=== PATIENT | female | born 1945 | race Caucasian/White ===

== ENCOUNTER 2021-04-27 17:51 | Emergency (ER) | payer MEDICARE, SELFPAY ==
--- NOTE | ~2021-04-27 | CT_ITS ---
EXAMINATION: CT brain wo con EXAM DATE: 04/27/2021 19:43 INDICATION: Fall, temporary change in awareness. TECHNIQUE: Spiral CT of the head was performed without contrast. Axial, coronal and sagittal images were reviewed. The dose-length product (DLP) for this examination was 605.33 mGy-cm. The exposure w as tailored according to patient size, and iterative reconstruction (ASIR) was used as additional dos e reduction technique. There is no prior study for comparison. FINDINGS: There is no acute intraparenchymal hemorrhage. No evidence of intraparenchymal brain mass lesion. No evidence of acute infarction. Please note that initial head CT has limited sensitivity f or small or acute infarctions. There is mild to moderate periventricular and subcortical hypodensity , nonspecific but probably related to small vessel ischemic disease. [id number] There is int racranial carotid arteriosclerosis. There are no extra-axial collections. There is no mass effect o r midline shift. The orbits are unremarkable. Soft tissue is unremarkable. The visualized sinuses and mastoid air cells are well aerated. Nasal bone fractures which appear most likely old given abs ence of soft tissue findings. IMPRESSION: 1. No acute intracranial findings. 2. Chronic age related findings. Reviewed, dictated and finalized at location G. US SUPERVISOR
[2021-04-27 17:54] VITALS: BP 96/66; PULSE 78; RESP 18; TEMP 36.8; O2SAT 96
--- NOTE | 2021-04-27 18:36 | PC.NURSE ---
Folder And Notcher attempting to collect more information about patient's visit. Patient sat up and yelled, Get the hell out of my life! Then laid back down in the bed. Patient on pulse ox, blood pressure, and cardiac monitors.
--- NOTE | 2021-04-27 18:54 | PC.NURSE ---
Lock Plater heard a loud noise from patient's direction and saw patient on the floor. Patient assisted back into the bed by sewing techniques demonstrator and va underwriter. Patient sustained a bloody nose when fell due to hitting her face on either the floor or bed when she fell. Patient just keeps yelling, I'm dying, I'm dying. Lock Plater notified [facility] ED charge regarding the incident and decision was made have an sewing techniques demonstrator sit with patient for safety. Lock Plater will notify provide once a provider is signed up.
[2021-04-27] MEDS: THIAMINE HCL 200 MG/2 ML VIAL IV PUSH (19:26)
[2021-04-27 20:01] LABS: Basophils Percent Auto 0.4 % (0.2-1.2); Eosinophils Absolute Auto 0.1 K/mm3 (0-0.3); Eosinophils Percent Auto 1.3 % (0-4.4); Hematocrit 40.7 % (37.0-47.0); Hemoglobin 13.3 g/dL (12.0-15.0); Immature Granulocyte Absolute 0.02 K/mm3 (0.00-0.031); Immature Granulocyte Percent A 0.3 % (0-0.5); Lymphocytes Absolute Auto 3.46 K/mm3 (0.9-3.2); Lymphocytes Percent Auto 49.4 % (18.3-44.2); Mean Corpuscular HGB Conc 32.7 g/dl (32-36); Mean Corpuscular Hemoglobin 33.9 pg (26-34); Mean Corpuscular Volume 103.8 fl (80-100); Mean Platelet Volume 10.3 fl (7.4-10.4); Monocytes Absolute Auto 0.7 K/mm3 (0.1-0.6); Monocytes Percent Auto 10.3 % (2.6-8.5); Neutrophils Absolute Auto 2.7 K/mm3 (1.3-6.7); Neutrophils Percent Auto 38.3 % (45.5-73.1); Platelet Count Result 280 k/mm3 (150-375); Red Blood Count 3.92 M/mm3 (4.2-5.4); Red Cell Distribution Width 15.5 % (11.5-14.5)
[2021-04-27 20:26] LABS: Ethanol 380 mg/dL (<10)
[2021-04-27 20:28] LABS: Lipase 111 U/L (23-300)
[2021-04-27 20:41] LABS: Troponin I < 0.012 ng/mL (0.000-0.034)
--- NOTE | 2021-04-27 21:05 | PC.NURSE ---
Patient fell asleep with tech sitting at bedside. Spoke with jalen Powell RN and decision made to utilize bed alarm and remove sitter with curtain open to keep an eye on patient.
[2021-04-27 21:24] LABS: Add Urine Microscopic? NO; Appearance Urine Clear (Clear); Bilirubin Urine Negative (Negative); Blood Urine Negative (Negative); Color Urine Straw (Yellow); Glucose Urine UA Negative (Negative); Ketones Urine Negative (Negative); Leukocyte Esterase Ur Negative LEU/UL (Negative); Nitrate Urine Negative (Negative); Protein Urine Negative (Negative); Urobilinogen Urine Negative mg/dL (<2.0)
[2021-04-27 21:28] LABS: Specific Grav Ur 1.004 (1.001-1.035)
--- NOTE | 2021-04-27 21:29 | PC.NURSE ---
Patient request to urinate. Window Treatment Installer assisted patient onto bedpan and patient urinate. Window Treatment Installer cleaned patient up and placed patient in a diaper.
[2021-04-27 21:37] LABS: Amphetamine Screen Urine Negative (Negative); Barbiturate Screen Urine Negative (Negative); Benzodiazepines Screen Urine Negative (Negative); Cannabinoid Screen Urine Negative (Negative); Cocaine Screen Urine Negative (Negative); Methadone Screen Urine Negative (Negative); Opiate Screen Urine Negative (Negative); Phencyclidine Screen Urine Negative (Negative)
[2021-04-27 21:40] LABS: Alanine Aminotransferase 22 U/L (4-35); Albumin Level 3.9 g/dL (3.5-5.1); Alkaline Phosphatase 89 U/L (38-126); Anion Gap 9 mmol/L (8-16); Aspartate Amino Transferase 32 U/L (14-36); Bilirubin,Total 0.4 mg/dL (0.2-1.3); Blood Urea Nitrogen 16 mg/dL (7-17); Calcium 9.2 mg/dL (8.4-10.2); Carbon Dioxide 24 mmol/L (22-30); Chloride 113 mmol/L (98-107); Estimated CRCL calculation 59 ml/min; Estimated Glomerular Filt Rate > 60; Glucose 111 mg/dL (65-110); Potassium 3.2 mmol/L (3.4-5.0); Sodium 146 mmol/L (137-145)
[2021-04-27] MEDS: LACTATED RINGERS 1,000 ML 999 ML IV CONT (21:54)
--- NOTE | 2021-04-27 22:01 | PC.NURSE ---
Patient continues to be resting/sleeping on stretcher. Bed alarm under patient for patient safety.
--- NOTE | 2021-04-27 22:49 | ED.GENADULT ---
HPI - General Adult General Chief complaint: Abdominal Pain <Sabas Jolly MD - Last Filed: 04/27/21 22:55> Stated complaint: Abdominal Pain <Sabas Jolly MD - Last Filed: 04/27/21 22:55> Time Seen by Provider: 04/27/21 18:59 <Sabas Jolly MD - Last Filed: 04/27/21 22:55> Source: patient <Sabas Jolly MD - Last Filed: 04/27/21 22:55> Mode of arrival: EMS <Sabas Jolly MD - Last Filed: 04/27/21 22:55> Limitations: altered mental status and clinical condition <Sabas Jolly MD - Last Filed: 04/27/21 22:55> History of Present Illness HPI narrative: 75-year-old female Brought by EMS Unclear exactly what for, possibly abdominal pain, however neither the patient nor the EMS report are crystal clear on this Patient is extremely intoxicated and her only complaint to me is I think I might be dying I cannot get any other specific symptoms or reason for that believe, she does not seem to have shortness of breath or chest pain, she has not vomiting, she is moving everything, she does not have any wounds <Sabas Jolly MD - Last Filed: 04/27/21 22:55> Related Data Allergies/adverse reactions: Allergies Allergy/AdvReac Type Severity Reaction Status Date / Time Unable to Assess Allergy Verified 04/27/21 21:53 <Sabas Jolly MD - Last Filed: 04/27/21 22:55> Review of Systems Review of Systems: ROS unobtainable: Yes unobtainable due to mental status <Sabas Jolly MD - Last Filed: 04/27/21 22:55> Constitutional: Constitutional: Denies fever(s) <Sabas Jolly MD - Last Filed: 04/27/21 22:55> Cardiovascular: Cardiovascular: Denies chest pain <Sabas Jolly MD - Last Filed: 04/27/21 22:55> Gastrointestinal: Gastrointestinal: Denies vomiting <Sabas Jolly MD - Last Filed: 04/27/21 22:55> FORMERLY [facility], [facility] Social History Social History: Social History (Updated 04/27/21 @ 22:52 by Sabas Jolly MD) Alcohol intake: current Alcohol use details: Heavy <Sabas Jolly MD - Last Filed: 04/27/21 22:55> Exam Const: General: cooperative <Sabas Jolly MD - Last Filed: 04/27/21 22:55> Limitations: altered mental status <Sabas Jolly MD - Last Filed: 04/27/21 22:55> Other: Appears frail and chronically ill <Sabas Jolly MD - Last Filed: 04/27/21 22:55> HENMT: Head: normal to inspection, normocephalic, atraumatic, no contusions and no hematomas <Sabas Jolly MD - Last Filed: 04/27/21 22:55> Ears: external ears normal <Sabas Jolly MD - Last Filed: 04/27/21 22:55> General nose exam: no epistaxis <Sabas Jolly MD - Last Filed: 04/27/21 22:55> Mouth: Yes moist mucous membranes <Sabas Jolly MD - Last Filed: 04/27/21 22:55> Eyes: Conjunctivae: conjunctivae normal <Sabas Jolly MD - Last Filed: 04/27/21 22:55> EOM: EOMs intact bilaterally <Sabas Jolly MD - Last Filed: 04/27/21 22:55> Neck: Neck: normal visual inspection, supple and no JVD <Sabas Jolly MD - Last Filed: 04/27/21 22:55> Resp: Effort & Inspection: normal respiratory effort and not labored <Sabas Jolly MD - Last Filed: 04/27/21 22:55> Auscultation: clear to auscultation bilaterally and other (BS =) <Sabas Jolly MD - Last Filed: 04/27/21 22:55> Cardio: Rate: regular rate <Sabas Jolly MD - Last Filed: 04/27/21 22:55> Rhythm: regular rhythm <Sabas Jolly MD - Last Filed: 04/27/21 22:55> GI: Inspection: non-distended <Sabas Jolly MD - Last Filed: 04/27/21 22:55> GI Palp: Yes Soft to palpation, No Guarding due to palpation present (GI) and No Rebound tenderness present <Sabas Jolly MD - Last Filed: 04/27/21 22:55> Skin: General skin exam: normal color and no rashes or lesions noted <Sabas Jolly MD - Last Filed: 04/27/21 22:55> Neuro: General: moves all extremities <Sabas Jolly MD - Last Filed: 04/27/21 22:55> Other: No facial asymmetry <Sabas Jolly MD - Last Filed: 04/27/21 22:55> Extrem: General: normal to inspection and no pe
[2021-04-27 23:25] VITALS: BP 98/60; PULSE 77; RESP 25; O2SAT 100
[2021-04-27 23:31] LABS: Glucose Point of Care 104 mg/dl (65-105)
[2021-04-27] MEDS: DEXTROSE 5%/0.45% SOD CHL 1,000 ML 100 ML IV CONT (23:45)
[2021-04-28 01:50] VITALS: BP 103/59; PULSE 76; RESP 20; O2SAT 96
[2021-04-28 03:08] VITALS: BP 112/50; PULSE 76; RESP 20; O2SAT 99
[2021-04-28 06:20] VITALS: BP 110/55; PULSE 80; RESP 20; O2SAT 100
== END 2021-04-28 06:22 | disposition home or self-care (01) ==
PROVIDERS: Emergency Medicine; Emergency Provider Emergency Medicine
DX: F10.929 Alcohol use, unspecified with intoxication, unspecified (principal)
CPT/HCPCS: 36415; 70450; 80053; 80307; 81003; 82948; 83690; 84484; 85025; 96361; 96374; 99284; J3411; J7120

== ENCOUNTER 2021-04-29 18:42 | Emergency (ER) | payer MEDICARE, SELFPAY ==
[2021-04-29 18:41] VITALS: BP 110/61; PULSE 76; RESP 20; TEMP 35.8; O2SAT 98
--- NOTE | 2021-04-29 18:53 | ED.GENADULT ---
HPI - General Adult General Chief complaint: Abdominal Pain Stated complaint: etoh with abd pain Time Seen by Provider: 04/29/21 18:43 Source: patient, EMS and RN notes reviewed Limitations: intoxication History of Present Illness HPI narrative: 75-year-old female presents the [facility] department for evaluation of alcohol intoxication and having bad emotions . Patient states that she was drinking today and she had thoughts of her daughter that has . Patient denies any homicidal or suicidal ideation. Patient states she does have some epigastric pain. Patient was evaluated in the ED 2 days for alcohol intoxication. Related Data Allergies Allergy/AdvReac Type Severity Reaction Status Date / Time Unable to Assess Allergy Verified 04/27/21 21:53 Review of Systems Review of Systems: CONSTITUTIONAL: Denies fever, chills, or sweats. EYES: Denies visual changes, redness, or discharge. ENT: Denies rhinorrhea, congestion, sore throat, or otalgia. CARDIOVASCULAR: Denies chest pain, palpitations, or edema. RESPIRATORY: Denies cough or dyspnea. GASTROINTESTINAL: chronic abdominal pain GENITOURINARY: Denies dysuria or hematuria. SKIN: Denies rash or itching. MUSCULOSKELETAL: Denies back pain, joint pain, or myalgia. NEUROLOGIC: Denies headache, numbness, or weakness. PSYCHIATRIC: alcohol intoxication PMFSH Social History Social History (Updated 04/27/21 @ 22:52 by Sabas Jolly MD) Alcohol intake: current Alcohol use details: Heavy Exam Narrative: APPEARANCE: Well appearing, no pain, no distress, well-nourished. HEAD: normocephalic, atraumatic. EYES: PERRLA/EOMI, conjunctivae clear. contusion around right eye NOSE: Normal no drainage NECK: Supple. No adenopathy, no masses. RESPIRATORY: Airway patent, respirations nonlabored. Clear to auscultation bilaterally, no rales, rhonchi, wheezing. CARDIOVASCULAR: Regular rate and rhythm without murmurs rubs or gallops. ABDOMINAL: Soft, nontender, nondistended, normal bowel sounds MUSCULOSKELETAL: Moves all extremities. Strength/ROM intact, No edema, No calf tenderness. NEURO: Alert. Cranial nerves II through XII intact. SKIN: Warm, dry. Normal Color PSYCHIATRIC: Normal affect/mood. Course Reevaluation(s) Reevaluation #1: Patient denies any current abdominal pain. Patient states she does feel improved. Patient is requesting discharge to home. Vital Signs Vital signs: Vital Signs Temperature 96.4 F L 04/29/21 18:41 Pulse Rate 76 04/29/21 18:41 Respiratory Rate 20 04/29/21 18:41 Blood Pressure 110/61 04/29/21 18:41 Pulse Oximetry 98 04/29/21 18:41 Temperature 96.4 F L 04/29/21 18:41 Pulse Rate 68 04/29/21 20:44 Respiratory Rate 20 04/29/21 20:44 Blood Pressure 97/54 L 04/29/21 20:44 Pulse Oximetry 99 04/29/21 20:44 Medical Decision Making Vital Signs Vital Signs: Vital Signs Temperature 96.4 F L 04/29/21 18:41 Pulse Rate 76 04/29/21 18:41 Respiratory Rate 20 04/29/21 18:41 Blood Pressure 110/61 04/29/21 18:41 Pulse Oximetry 98 04/29/21 18:41 Temperature 96.4 F L 04/29/21 18:41 Pulse Rate 68 04/29/21 20:44 Respiratory Rate 20 04/29/21 20:44 Blood Pressure 97/54 L 04/29/21 20:44 Pulse Oximetry 99 04/29/21 20:44 Lab Data Lab results reviewed: Yes I reviewed the patient's lab results. Result diagrams: 04/29/21 18:50 04/29/21 18:50 Labs: Lab Results 04/29/21 04/29/21 04/29/21 Range/Units 18:50 18:50 18:50 WBC 9.6 (4.5-10.0) K/mm3 RBC 4.18 L (4.2-5.4) M/mm3 Hgb 13.8 (12.0-15.0) g/dL Hct 42.6 (37.0-47.0) % MCV 101.9 H (80-100) fl MCH 33.0 (26-34) pg MCHC 32.4 (32-36) g/dl RDW 15.1 H (11.5-14.5) % Plt Count 271 (150-375) k/mm3 MPV 9.9 (7.4-10.4) fl Immature Gran % (Auto) 0.4 (0-0.5) % Neut % (Auto) 55.9 (45.5-73.1) % Lymph % (Auto) 32.9 (18.3-44.2) % [place] % (Auto) 9.5 H (2.6-8.5) % Eos % (Aut
[2021-04-29 18:58] LABS: Basophils Percent Auto 0.4 % (0.2-1.2); Eosinophils Absolute Auto 0.1 K/mm3 (0-0.3); Eosinophils Percent Auto 0.9 % (0-4.4); Hematocrit 42.6 % (37.0-47.0); Hemoglobin 13.8 g/dL (12.0-15.0); Immature Granulocyte Absolute 0.04 K/mm3 (0.00-0.031); Immature Granulocyte Percent A 0.4 % (0-0.5); Lymphocytes Absolute Auto 3.16 K/mm3 (0.9-3.2); Lymphocytes Percent Auto 32.9 % (18.3-44.2); Mean Corpuscular HGB Conc 32.4 g/dl (32-36); Mean Corpuscular Volume 101.9 fl (80-100); Mean Platelet Volume 9.9 fl (7.4-10.4); Monocytes Absolute Auto 0.9 K/mm3 (0.1-0.6); Monocytes Percent Auto 9.5 % (2.6-8.5); Neutrophils Absolute Auto 5.4 K/mm3 (1.3-6.7); Neutrophils Percent Auto 55.9 % (45.5-73.1); Platelet Count Result 271 k/mm3 (150-375); Red Blood Count 4.18 M/mm3 (4.2-5.4); Red Cell Distribution Width 15.1 % (11.5-14.5); White Blood Count 9.6 K/mm3 (4.5-10.0)
[2021-04-29 19:10] LABS: Lactic Acid Reflex 3.4 mmol/L (0.7-2.1)
[2021-04-29 19:15] LABS: Alanine Aminotransferase 22 U/L (4-35); Albumin Level 4.2 g/dL (3.5-5.1); Alkaline Phosphatase 104 U/L (38-126); Anion Gap 11 mmol/L (8-16); Aspartate Amino Transferase 34 U/L (14-36); Bilirubin,Total 0.6 mg/dL (0.2-1.3); Blood Urea Nitrogen 12 mg/dL (7-17); Calcium 9.4 mg/dL (8.4-10.2); Carbon Dioxide 23 mmol/L (22-30); Chloride 103 mmol/L (98-107); Estimated CRCL calculation 59 ml/min; Estimated Glomerular Filt Rate > 60; Glucose 110 mg/dL (65-110); Lipase 114 U/L (23-300); Potassium 3.1 mmol/L (3.4-5.0); Sodium 137 mmol/L (137-145)
[2021-04-29 19:16] LABS: Ethanol 270 mg/dL (<10)
[2021-04-29] MEDS: POTASSIUM CHLORIDE 20 MEQ PACKET (FOR LIQUID) 40 MEQ PO (20:09)
[2021-04-29] MEDS: SODIUM CHLORIDE 0.9% IV 1,000 ML 999 ML IV CONT (20:42)
[2021-04-29 20:44] VITALS: BP 97/54; PULSE 68; RESP 20; O2SAT 99
[2021-04-29 21:56] LABS: Reflex Lactic Acid Yes or No Add Lactic
[2021-04-29 22:46] LABS: Lactic Acid 3.1 mmol/L (0.7-2.1)
[2021-04-29] MEDS: SODIUM CHLORIDE 0.9% IV 500 ML 999 ML IV CONT (22:58)
[2021-04-29 23:54] VITALS: BP 112/62; PULSE 69; RESP 20; O2SAT 100
[2021-04-30 03:07] VITALS: BP 101/49; PULSE 65; RESP 18; O2SAT 95
--- NOTE | 2021-04-30 04:59 | PC.NURSE ---
pt up to bathroom steady gait. patient does not have transportation home or contact information
[2021-04-30 05:03] VITALS: BP 135/61; PULSE 60; RESP 18; O2SAT 96
--- NOTE | 2021-04-30 07:30 | PC.NURSE ---
care coordination here to evaluate pt. and attempt to get pt. home.
--- NOTE | 2021-04-30 07:51 | PC.NURSE ---
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
--- NOTE | 2021-04-30 12:35 | PCCCNOTE ---
late entry 1235: Phone call received at 0715 to assist patient with transportation. Called to [facility] [employer] and spoke with rep they are running mainly around [place] but will accept the transportation since patient is going back to [place], but they will be unable to get back all they way to end of the mobile park. Spoke with patient and patient advises that she is only 8 trailers in so if the cab can get her to the entrance she will be able to walk. Address confirmed with patient and called back to [facility] who confirm transport and Voucher provided to the Bedside RN Marta. Patient has shoes and fleece pants but needs warmer shirt. Provided patient with a zip up sweatshirt.
== END 2021-04-30 08:00 | disposition home or self-care (01) ==
PROVIDERS: Emergency Provider Emergency Medicine
DX: E86.0 Dehydration (principal); F10.120 Alcohol abuse with intoxication, uncomplicated; Y90.8 Blood alcohol level of 240 mg/100 ml or more
CPT/HCPCS: 36415; 80053; 80307; 83605; 83690; 85025; 96360; 96361; 99283; A9270; J7030; J7040

== ENCOUNTER 2023-12-14 10:41 | Inpatient (IN) | payer MEDICARE, SELFPAY ==
[2023-12-14] VITALS (21 sets, daily range): BP systolic 104–195; BP diastolic 58–94; PULSE 56–81; RESP 15–20; TEMP 36.6–36.9; O2SAT 95–100; BMI 16.1
--- NOTE | ~2023-12-14 | CT_ITS ---
EXAMINATION: CT brain wo con DATE: 12/14/2023 12:42 INDICATION: Altered mental status. TECHNIQUE: Computed tomography (CT) of the head was performed without intravenous contrast. The mA wa s adjusted according to patient size. Iterative reconstruction technique was employed. The dose-lengt h product was 605.33 mGy-cm. COMPARISON: Head CT 04/27/2021 FINDINGS: There are scattered areas of low attenuation in the cerebral white matter. There is no intr acranial hemorrhage, acute infarction, or abnormal intracranial mass lesion. The ventricles are jacek l in size. There is mild mucosal thickening in the paranasal sinuses. The orbits are normal. The mast oid air cells are normal. There is cerumen in the external auditory canals. IMPRESSION: 1. Stable moderate nonspecific cerebral white matter disease, which likely represents chronic small v essel ischemic disease. Reviewed, dictated and finalized at location A. IMPRESSION: 1. Stable moderate nonspecific cerebral white matter disease, which likely repr esents chronic small vessel ischemic disease.
--- NOTE | 2023-12-14 11:38 | ECG_ITS ---
Test Date: 2023-12-14 11:53:12 Measurements Intervals [place] Rate: 71 P: 73 WV: 156 QRS: 77 QRSD: 100 T: 57 QT: 381 QTc: 416 Interpretive Statements SINUS RHYTHM MINIMAL Q WAVES- INFERIOR LEADS BASELINE ARTIFACT- I, II, AVR, AVL, AVF BORDERLINE ECG No previous ECG available for comparison Electronically Signed On 12-14-2023 12:01:04 CDT by Bishnu Barry D.O.
[2023-12-14 11:59] LABS: Basophils Percent Auto 0.5 % (0.2-1.2); Eosinophils Absolute Auto 0.1 K/mm3 (0-0.3); Eosinophils Percent Auto 1.1 % (0-4.4); Hematocrit 40.9 % (37.0-47.0); Hemoglobin 13.4 g/dL (12.0-15.0); Immature Granulocyte Absolute 0.01 K/mm3 (0.00-0.031); Immature Granulocyte Percent A 0.2 % (0-0.5); Lymphocytes Absolute Auto 2.25 K/mm3 (0.9-3.2); Lymphocytes Percent Auto 33.9 % (18.3-44.2); Mean Corpuscular HGB Conc 32.8 g/dl (32-36); Mean Corpuscular Hemoglobin 32.2 pg (26-34); Mean Corpuscular Volume 98.3 fl (80-100); Mean Platelet Volume 10.9 fl (7.4-10.4); Monocytes Absolute Auto 0.7 K/mm3 (0.1-0.6); Monocytes Percent Auto 9.8 % (2.6-8.5); Neutrophils Absolute Auto 3.6 K/mm3 (1.3-6.7); Neutrophils Percent Auto 54.5 % (45.5-73.1); Platelet Count Result 228 k/mm3 (150-375); Red Blood Count 4.16 M/mm3 (4.2-5.4); Red Cell Distribution Width 13.7 % (11.5-14.5); White Blood Count 6.6 K/mm3 (4.5-10.0)
[2023-12-14 12:09] LABS: INR 0.9; Prothrombin Time 12.9 Seconds (11.1-14.7)
[2023-12-14 12:10] LABS: Partial Thromboplastin Time 23.3 Seconds (22.3-36.8)
[2023-12-14 12:14] LABS: Alanine Aminotransferase 26 U/L (6-35); Albumin Level 4.2 g/dL (3.5-5.1); Alkaline Phosphatase 81 U/L (38-126); Anion Gap 8 mmol/L (4-12); Aspartate Amino Transferase 38 U/L (14-36); Bilirubin,Total 0.5 mg/dL (0.2-1.3); Blood Urea Nitrogen 22 mg/dL (7-17); Calcium 9.3 mg/dL (8.4-10.2); Carbon Dioxide 31 mmol/L (22-30); Chloride 97 mmol/L (98-107); Estimated CRCL calculation 44 ml/min; Estimated Glomerular Filt Rate > 60; Glucose 84 mg/dL (65-110); Potassium 3.4 mmol/L (3.4-5.0); Sodium 136 mmol/L (137-145)
--- NOTE | 2023-12-14 12:14 | ED.AMS ---
HPI - Altered Mental Status General Chief Complaint: Altered Mental Status Stated Complaint: confusion Time Seen by Provider: 12/14/23 12:07 History of Present Illness HPI narrative: 78-year-old female presenting with confusion. Patient was reportedly found in a hotel that she is not currently staying at and she was unable to ask questions so police were called. She states that she was only confused because she was afraid of the safety officer. States that she was staying with her niece who is currently on her way to the hospital. She denies any complaints. A&O x3. Related Data Allergies Allergy/AdvReac Type Severity Reaction Status Date / Time No Known Allergies Allergy Verified 12/14/23 22:42 Review of Systems Review of Systems: All systems reviewed & are unremarkable except as noted in HPI and below PMFSH Social History Social History Smoking status: Former smoker Alcohol intake: former Alcohol use details: Heavy Substance use: never Do You Feel Safe in your Home?: Yes Lack of Transportation: YES Lack of Food: Never True Current Housing: I Do Not Have Housing Concerned About Future Housing: YES Difficulty Paying Gas/Electric Bills: No Difficulty Paying for Meds: No Currently Unemployed: No Education: High School Diploma/GED Difficulty w/ Childcare or Family Care: No Spiritual care concerns: No Exam Narrative: GENERAL: Well-appearing, in no acute distress, pleasant cooperative. HEAD: Normocephalic, atraumatic. EYES: EOMI. +anisocoria; L pupil 4mm, R pupil 2mm - pt states this is baseline ENT: Poor dentition, Mucous membranes moist. NECK: Supple. CHEST: Clear to auscultation. No respiratory distress. HEART: Regular rate and rhythm ABDOMEN: Soft, nontender, nondistended EXTREMITIES: Normal range of motion. No edema. NEURO: No focal deficits. Alert and oriented x3. PSYCH: Normal mood and affect. Course Vital Signs Vital signs: Vital Signs Temperature 97.8 F 12/14/23 10:45 Pulse Rate 81 12/14/23 10:45 Respiratory Rate 12/14/23 10:45 Blood Pressure 153/77 H 12/14/23 10:45 Pulse Oximetry 98 12/14/23 10:45 Oxygen Delivery Room Air 12/14/23 10:45 Temperature 98.0 F 12/19/23 13:59 Pulse Rate 78 12/19/23 13:59 Respiratory Rate 20 12/19/23 13:59 Blood Pressure 141/62 H 12/19/23 13:59 Pulse Oximetry 99 12/19/23 13:59 Oxygen Delivery Room Air 12/19/23 08:31 MDM - Altered Mental Status MDM Narrative Medical decision making narrative: 78-year-old female presenting with an episode of confusion. Vitals within normal limits. Exam remarkable for the above. Patient denies any complaints. She is alert and oriented, responding appropriately to questions. Blood work is unremarkable. UA is concerning for UTI. Patient has been given Keflex. CT brain shows no acute abnormalities. Patient's mental status has been fluctuating. She has been somewhat confused off and on. Patient requires admission for further management of UTI, encephalopathy, and failure to thrive. She is agreeable this plan. I spoke with the hospitalist who has accepted her for admission. Differential Diagnosis Differential diagnosis: Likely altered mental status and other (UTI, encephalopathy, failure to thrive) Medical Records Attestation: I reviewed the patient's medical records. Lab Data Attestation: I reviewed the patient's lab results. 12/19/23 05:50 12/19/23 05:50 Labs: Lab Results 12/14/23 12/14/23 12/16/23 Range/Units 11:49 12:10 08:10 WBC 6.6 5.4 (4.5-10.0) K/mm3 RBC 4.16 L 3.80 L (4.2-5.4) M/mm3 Hgb 13.4 12.3 (12.0-15.0) g/dL Hct 40.9 37.1 (37.0-47.0) % MCV 98.3 97.6 (80-100) fl MCH 32.2 32.4 (26-34) pg MCHC 32.8 33.2 (32-36) g/dl RDW 13.7 13.5 (11.5-14.5) % Plt Count 228 198 (150-375) k/mm3 MPV 10.9 H 10.7 H (7.4-10.4)
[2023-12-14 12:31] LABS: Ethanol < 10 mg/dL (<10)
[2023-12-14 12:43] LABS: Add Urine Microscopic? YES; Appearance Urine Cloudy (Clear); Bacteria Urine 4+ /hpf; Bilirubin Urine Negative (Negative); Blood Urine Non-Hemolyzed Trace (Negative); Color Urine Dark Yellow (Yellow); Glucose Urine UA Negative (Negative); Ketones Urine Trace mg/dL (Negative); Leukocyte Esterase Ur 2+ LEU/UL (Negative); Nitrate Urine Positive (Negative); Non Pathogenic Casts 0-2; Protein Urine 1+ mg/dL (Negative); RBC Urine 0-2 /hpf (0-2); Specific Grav Ur 1.028 (1.001-1.035); Squamous Epithelial Cell Urine Moderate /hpf (Few); WBC Urine 51-100 /hpf (0-3); pH Urine 5.5 (5.0-9.0)
[2023-12-14] MEDS: CEPHALEXIN 500 MG CAPSULE PO (13:33)
[2023-12-14] MEDS: Please add drug allergy info to patient profile. XX (13:33)
--- NOTE | 2023-12-14 15:07 | PC.NURSE ---
joyce (niece) called and said she would be 30 min away to come see the pt, then 20 min later joyce called again and said she would be 45 min away now. Dalia (sister) called and asked for an update and said shes physically unable to come see the pt
--- NOTE | 2023-12-14 16:07 | PC.NURSE ---
called Nancy (niece) at this time to see when she would be arriving. there was no answer. voicemail was left
--- NOTE | 2023-12-14 16:33 | PC.NURSE ---
called Nancy to check in with her. she yelled at this RN and said i'm not legally responsible for her. I dont know why your calling me. I got kicked out of my house because of her
--- NOTE | 2023-12-14 16:57 | PC.NURSE ---
regular diet dinner tray ordered
--- NOTE | 2023-12-14 18:38 | PCCCNOTE ---
Care coordination called to the ED to assist with getting pt home with family. Nancy, pt niece, had pt over the past couple weeks, but she said she is unable to care for her and didn't really want to in the beginning. The pt.'s sister, Dalia, is unable to come and get her and she is unable to care for her. There were no other phone numbers to contact family and pt. doesn't know their numbers. She has 3 children that all live in different states, but she doesn't know ow to get a hold of them. She does not want to be placed in a correction care facility, but is unable to care for herself. Pt being admitted for a UTI and failure to thrive. Nancy's phone number [phone], Dalia [phone].
[2023-12-14] MEDS: SODIUM CHLORIDE 0.9% IV 1,000 ML 999 ML IV CONT (19:21)
--- NOTE | 2023-12-14 19:44 | PC.NURSE ---
Dalia, sister Crystal, rosy
--- NOTE | 2023-12-14 20:23 | PM.IMHP ---
H&P: HPI History of Present Illness Date/Time: 12/14/23 20:23 Chief Complaint: altered mental status Narrative: This is a 78-year-old female that was brought to the emergency room after she was found wandering around, confused, apparently family has disowned her. Patient is unable to give much history contributory to present illness. Most of the history has been obtained upon removing medical records. Preliminary workup was significant for urinalysis with numerous WBCs present EXAMINATION: CT brain wo con DATE: 12/14/2023 12:42 INDICATION: Altered mental status. TECHNIQUE: Computed tomography (CT) of the head was performed without intravenous contrast. The mA was adjusted according to patient size. Iterative reconstruction technique was employed. The dose-length product was 605.33 mGy-cm. COMPARISON: Head CT 04/27/2021 FINDINGS: There are scattered areas of low attenuation in the cerebral white matter. There is no intracranial hemorrhage, acute infarction, or abnormal intracranial mass lesion. The ventricles are normal in size. There is mild mucosal thickening in the paranasal sinuses. The orbits are normal. The mastoid air cells are normal. There is cerumen in the external auditory canals. IMPRESSION: 1. Stable moderate nonspecific cerebral white matter disease, which likely represents chronic small vessel ischemic disease. [facility] Social History Social History Smoking status: Former smoker Alcohol intake: former Alcohol use details: Heavy Substance use: never Do You Feel Safe in your Home?: Yes Lack of Transportation: YES Lack of Food: Never True Current Housing: I Do Not Have Housing Concerned About Future Housing: YES Difficulty Paying Gas/Electric Bills: No Difficulty Paying for Meds: No Currently Unemployed: No Education: High School Diploma/GED Difficulty w/ Childcare or Family Care: No Spiritual care concerns: No Meds Home Medications and Allergies Home Medications Medication Instructions Recorded Confirmed Type No Home Medications 12/14/23 12/14/23 History Allergies Allergy/AdvReac Type Severity Reaction Status Date / Time No Known Allergies Allergy Verified 12/14/23 22:42 Vital Signs Vital Signs - 24 hr 12/14/23 10:45 12/14/23 11:47 12/14/23 11:47 Temperature 97.8 F Pulse Rate 81 71 Respiratory Rate 19 Blood Pressure 153/77 H Pulse Oximetry 98 98 Oxygen Delivery Room Air Room Air 12/14/23 12:01 12/14/23 12:16 12/14/23 13:48 Temperature 97.8 F Pulse Rate 68 70 63 Respiratory Rate 15 18 16 Blood Pressure 133/64 144/68 H 127/58 L Pulse Oximetry 99 96 97 Oxygen Delivery 12/14/23 13:46 12/14/23 15:01 12/14/23 15:16 Temperature Pulse Rate 71 66 67 Respiratory Rate 20 16 20 Blood Pressure 127/58 L 132/70 133/68 Pulse Oximetry 97 97 98 Oxygen Delivery 12/14/23 15:31 12/14/23 15:46 12/14/23 16:01 Temperature Pulse Rate 66 64 71 Respiratory Rate 19 19 20 Blood Pressure 129/66 120/65 133/63 Pulse Oximetry 96 96 98 Oxygen Delivery 12/14/23 16:16 12/14/23 16:46 12/14/23 17:01 Temperature Pulse Rate 63 68 63 Respiratory Rate 20 20 17 Blood Pressure 142/68 H 154/75 H 160/74 H Pulse Oximetry 98 97 97 Oxygen Delivery 12/14/23 17:31 12/14/23 18:31 12/14/23 19:16 Temperature Pulse Rate 72 60 56 L Respiratory Rate 17 19 18 Blood Pressure 146/71 H 180/84 H 139/58 L Pulse Oximetry 96 98 96 Oxygen Delivery 12/14/23 19:31 Temperature Pulse Rate 60 Respiratory Rate 17 Blood Pressure 104/87 Pulse Oximetry 99 Oxygen Delivery Exam Narrative: lying in stretcher Const: General: comfortable, no acute distress, well developed, alert, awake and average body habitus Nutritional Appearance: underweight Orientation/consciousness: oriented to person and oriented to place Other: Unkempt HENMT: Head: normal to ins
--- NOTE | 2023-12-14 22:20 | ADMGEN ---
This patient, Anahy Irby, was admitted to Medical Room 341-01. Patient/family oriented to hospital policies and general routines including ID bracelet, bed and alarms, visiting hours, pain management, procedures, bathroom and other care routines, personal items, smoking policy, room service/diet, and visiting hours. Information on how to activate the Rapid Response Team has been discussed. Patient/Family are encouraged to report perceived risks to care and to ask questions if they do not understand what they are told or what they should do.
[2023-12-14] MEDS: traZODone HCL 50 MG TABLET PO (23:13)
[2023-12-15 05:21] VITALS: BP 114/72; PULSE 66; RESP 14; TEMP 36.6; O2SAT 99
--- NOTE | 2023-12-15 10:23 | PM.IMPN ---
Progress Note: A&P Assessment and Plan (1) UTI (urinary tract infection): Code(s): N39.0 - Urinary tract infection, site not specified Status: Acute Assessment and Plan: 12/15/23: UA showing cloudy appearance, 1+ urine protein, trace urine ketone, positive nitrate, 2+ leukocyte, 51-100 urine WBC, 4+ urine bacteria Urine culture obtained and pending Continue Rocephin (2) Altered mental status: Code(s): R41.82 - Altered mental status, unspecified Status: Acute Assessment and Plan: 12/15/23: Likely secondary to UTI Continue neuro checks (3) Adult failure to thrive: Code(s): R62.7 - Adult failure to thrive Status: Acute Assessment and Plan: 12/15/23: Continue PT and OT Case management following for outpatient rehab needs Time Spent With Patient Time with patient: Greater than 35 minutes Subjective Date/time seen: 12/15/23 10:23 Interval history: Interval history: This is a 78-year-old female who presented to the hospital with altered mental status. Workup in the hospital included a head CT which showed stable moderate nonspecific cerebral white matter disease likely representing chronic small-vessel ischemic disease. Initial labs showed a normal white blood cell count of 6.6, sodium 136, chloride 97, AST 38. UA was obtained and showed cloudy appearance, 1+ urine protein, trace ketone, positive nitrate, 2+ leukocyte, 51-100 urine wbc's, 4+ urine bacteria. Urine culture was obtained and is pending. EKG stone sinus rhythm with a rate of 71, QTC 416. Patient was started on Rocephin and given 1 L of normal saline while in the ED. Subjective: She is alert and oriented x3 today. Patient denies any fever, chills, nausea, vomiting, diarrhea, abdominal pain, chest pain, shortness of breath, dysuria, urinary frequency, or urinary urgency. Patient endorses weakness and fatigue. Labs and imaging reviewed. Review of Systems Review of Systems: All systems reviewed & are unremarkable except as noted in HPI and below Constitutional: Constitutional: Reports as per HPI and Reports no additional constitutional complaints Eyes: Eyes: Reports as per HPI and Reports no additional eye complaints ENT: Reports system reviewed and no additional complaints, except as documented and Reports as per HPI Cardiovascular: Cardiovascular: Reports as per HPI and Reports no additional cardiovascular complaints Respiratory: Respiratory: Reports as per HPI and Reports no additional respiratory complaints Gastrointestinal: Gastrointestinal: Reports no additional gastrointestinal complaints Genitourinary: Genitourinary: Reports no additional female genitourinary complaints and Reports as per HPI Musculoskeletal: Musculoskeletal: Reports no additional musculoskeletal complaints Integumentary/Breasts: Skin/Breast: Reports system reviewed and no additional complaints, except as docu and Reports as per HPI Neurologic: Reports system reviewed and no additional complaints, except as documented and Reports as per HPI Psychiatric: Psychiatric: Reports no additional psychiatric complaints and Reports as per HPI Exam Narrative: General: In no acute distress, malnourished Head: atraumatic, no encephalopathy Eyes: EOMI, PERRLA, sclera clear ENT: moist mucous membranes, nasal passages clear Neck: supple, no JVD, no adenopathy, trachea midline Cardiac: Normal S1 and S2. RRR, No murmur, gallops or friction rubs, peripheral pulses intact. Respiratory: Lungs clear to auscultation, no adventitious lung sounds, currently on room air Gastrointestinal: soft, non-distended, non-tender, hypoactive bowel sounds. : voiding without difficulty. Extremities: moves all extremities well, no edema Skin: clean, dry, intact. No wounds or lesions. Neuro: Alert and oriented x3, cranial nerves intact, no neuro deficits. Psych: normal mood, normal affect, interactive Objective Data Vital Signs Vital Signs: Vital
[2023-12-15 12:01] VITALS: BMI 16.1
[2023-12-15 12:33] VITALS: O2SAT 99
[2023-12-15 14:00] VITALS: BP 118/52; PULSE 62; RESP 20; TEMP 36.9; O2SAT 99
[2023-12-15 21:50] VITALS: BP 144/61; PULSE 70; RESP 18; TEMP 36.5; O2SAT 98
[2023-12-15] MEDS: MELATONIN 3 MG TABLET PO (21:58)
[2023-12-15 22:45] VITALS: O2SAT 98
[2023-12-16 06:00] VITALS: BP 115/57; PULSE 59; RESP 17; TEMP 36.8; O2SAT 99
--- NOTE | 2023-12-16 08:03 | PM.IMPN ---
Progress Note: A&P Assessment and Plan (1) UTI (urinary tract infection): Code(s): N39.0 - Urinary tract infection, site not specified Status: Acute Assessment and Plan: 12/15/23: UA showing cloudy appearance, 1+ urine protein, trace urine ketone, positive nitrate, 2+ leukocyte, 51-100 urine WBC, 4+ urine bacteria Urine culture obtained and pending Continue Rocephin 12/16/23: Urine culture showing coagulase-negative Staphylococcus, not S. Saprophyticus on preliminary read Continue Rocephin (2) Altered mental status: Code(s): R41.82 - Altered mental status, unspecified Status: Acute Assessment and Plan: 12/15/23: Likely secondary to UTI Continue neuro checks 12/16/23: currently A&O x3 Resolved (3) Adult failure to thrive: Code(s): R62.7 - Adult failure to thrive Status: Acute Assessment and Plan: 12/15/23: Continue PT and OT Case management following for outpatient rehab needs 12/16/23: No change to current treatment plan Time Spent With Patient Time with patient: 15 - 25 minutes Subjective Date/time seen: 12/16/23 08:03 Interval history: Interval history: This is a 78-year-old female who presented to the hospital with altered mental status. Workup in the hospital included a head CT which showed stable moderate nonspecific cerebral white matter disease likely representing chronic small-vessel ischemic disease. Initial labs showed a normal white blood cell count of 6.6, sodium 136, chloride 97, AST 38. UA was obtained and showed cloudy appearance, 1+ urine protein, trace ketone, positive nitrate, 2+ leukocyte, 51-100 urine wbc's, 4+ urine bacteria. Urine culture was obtained and is pending. EKG stone sinus rhythm with a rate of 71, QTC 416. Patient was started on Rocephin and given 1 L of normal saline while in the ED. Subjective: Patient denies any new complaints today. Labs and cultures reviewed. Review of Systems Review of Systems: All systems reviewed & are unremarkable except as noted in HPI and below Constitutional: Constitutional: Reports as per HPI and Reports no additional constitutional complaints Eyes: Eyes: Reports as per HPI and Reports no additional eye complaints ENT: Reports system reviewed and no additional complaints, except as documented and Reports as per HPI Cardiovascular: Cardiovascular: Reports as per HPI and Reports no additional cardiovascular complaints Respiratory: Respiratory: Reports as per HPI and Reports no additional respiratory complaints Gastrointestinal: Gastrointestinal: Reports no additional gastrointestinal complaints Genitourinary: Genitourinary: Reports no additional female genitourinary complaints and Reports as per HPI Musculoskeletal: Musculoskeletal: Reports no additional musculoskeletal complaints Integumentary/Breasts: Skin/Breast: Reports system reviewed and no additional complaints, except as docu and Reports as per HPI Neurologic: Reports system reviewed and no additional complaints, except as documented, Reports as per HPI and Reports confusion Psychiatric: Psychiatric: Reports no additional psychiatric complaints, Reports as per HPI and Reports confusion Exam Narrative: General: In no acute distress, malnourished Cardiac: Normal S1 and S2. RRR, No murmur, gallops or friction rubs, peripheral pulses intact. Respiratory: Lungs clear to auscultation, no adventitious lung sounds, currently on room air Gastrointestinal: soft, non-distended, non-tender, hypoactive bowel sounds. : voiding without difficulty. Neuro: Alert and oriented x3 Objective Data Vital Signs Vital Signs: Vital Signs - 24 hr 12/15/23 09:39 12/15/23 12:33 12/15/23 14:00 Temperature 98.5 F Pulse Rate 62 Respiratory Rate 20 Blood Pressure 118/52 L Pulse Oximetry 99 99 Oxygen Delivery Room Air Room Air 12/15/23 21:50 12/15/23 22:45 12/16/23 06:00 Temperature 97.7 F 98.2 F Pulse Rate 70 59
[2023-12-16 08:21] LABS: Basophils Percent Auto 0.4 % (0.2-1.2); Eosinophils Absolute Auto 0.1 K/mm3 (0-0.3); Eosinophils Percent Auto 2.4 % (0-4.4); Hematocrit 37.1 % (37.0-47.0); Hemoglobin 12.3 g/dL (12.0-15.0); Immature Granulocyte Absolute 0.05 K/mm3 (0.00-0.031); Immature Granulocyte Percent A 0.9 % (0-0.5); Lymphocytes Absolute Auto 2.26 K/mm3 (0.9-3.2); Lymphocytes Percent Auto 41.9 % (18.3-44.2); Mean Corpuscular HGB Conc 33.2 g/dl (32-36); Mean Corpuscular Hemoglobin 32.4 pg (26-34); Mean Corpuscular Volume 97.6 fl (80-100); Mean Platelet Volume 10.7 fl (7.4-10.4); Monocytes Absolute Auto 0.6 K/mm3 (0.1-0.6); Monocytes Percent Auto 10.9 % (2.6-8.5); Neutrophils Absolute Auto 2.4 K/mm3 (1.3-6.7); Neutrophils Percent Auto 43.5 % (45.5-73.1); Platelet Count Result 198 k/mm3 (150-375); Red Cell Distribution Width 13.5 % (11.5-14.5); White Blood Count 5.4 K/mm3 (4.5-10.0)
[2023-12-16 09:05] LABS: Alanine Aminotransferase 18 U/L (6-35); Albumin Level 3.4 g/dL (3.5-5.1); Alkaline Phosphatase 66 U/L (38-126); Anion Gap 6 mmol/L (4-12); Aspartate Amino Transferase 27 U/L (14-36); Bilirubin,Total 0.4 mg/dL (0.2-1.3); Blood Urea Nitrogen 10 mg/dL (7-17); Calcium 8.7 mg/dL (8.4-10.2); Carbon Dioxide 23 mmol/L (22-30); Chloride 106 mmol/L (98-107); Estimated CRCL calculation 52 ml/min; Estimated Glomerular Filt Rate > 60; Glucose 94 mg/dL (65-110); Potassium 3.7 mmol/L (3.4-5.0); Sodium 135 mmol/L (137-145)
[2023-12-16 14:00] VITALS: BP 130/65; PULSE 75; RESP 24; TEMP 37; O2SAT 100
[2023-12-16 20:12] VITALS: BP 125/63; PULSE 78; RESP 18; TEMP 36.8; O2SAT 99
[2023-12-16] MEDS: MELATONIN 3 MG TABLET PO (21:10)
[2023-12-17 05:31] LABS: Basophils Percent Auto 0.7 % (0.2-1.2); Eosinophils Absolute Auto 0.1 K/mm3 (0-0.3); Hematocrit 38.5 % (37.0-47.0); Hemoglobin 12.8 g/dL (12.0-15.0); Immature Granulocyte Absolute 0.02 K/mm3 (0.00-0.031); Immature Granulocyte Percent A 0.3 % (0-0.5); Lymphocytes Absolute Auto 2.79 K/mm3 (0.9-3.2); Lymphocytes Percent Auto 46.7 % (18.3-44.2); Mean Corpuscular HGB Conc 33.2 g/dl (32-36); Mean Corpuscular Hemoglobin 32.3 pg (26-34); Mean Corpuscular Volume 97.2 fl (80-100); Mean Platelet Volume 11.2 fl (7.4-10.4); Monocytes Absolute Auto 0.6 K/mm3 (0.1-0.6); Monocytes Percent Auto 10.6 % (2.6-8.5); Neutrophils Absolute Auto 2.4 K/mm3 (1.3-6.7); Neutrophils Percent Auto 39.7 % (45.5-73.1); Platelet Count Result 196 k/mm3 (150-375); Red Blood Count 3.96 M/mm3 (4.2-5.4); Red Cell Distribution Width 13.7 % (11.5-14.5)
[2023-12-17 05:50] LABS: Alanine Aminotransferase 17 U/L (6-35); Albumin Level 3.6 g/dL (3.5-5.1); Alkaline Phosphatase 64 U/L (38-126); Anion Gap 6 mmol/L (4-12); Aspartate Amino Transferase 24 U/L (14-36); Bilirubin,Total 0.3 mg/dL (0.2-1.3); Blood Urea Nitrogen 16 mg/dL (7-17); Calcium 8.8 mg/dL (8.4-10.2); Carbon Dioxide 26 mmol/L (22-30); Chloride 102 mmol/L (98-107); Estimated CRCL calculation 52 ml/min; Estimated Glomerular Filt Rate > 60; Glucose 98 mg/dL (65-110); Potassium 3.9 mmol/L (3.4-5.0); Sodium 134 mmol/L (137-145)
[2023-12-17 06:00] VITALS: BP 145/72; PULSE 68; RESP 16; TEMP 36.3; O2SAT 97
--- NOTE | 2023-12-17 08:11 | PM.IMPN ---
Progress Note: A&P Assessment and Plan (1) UTI (urinary tract infection): Code(s): N39.0 - Urinary tract infection, site not specified Status: Acute Assessment and Plan: 12/15/23: UA showing cloudy appearance, 1+ urine protein, trace urine ketone, positive nitrate, 2+ leukocyte, 51-100 urine WBC, 4+ urine bacteria Urine culture obtained and pending Continue Rocephin 12/16/23: Urine culture showing coagulase-negative Staphylococcus, not S. Saprophyticus on preliminary read Continue Rocephin 12/17/23: Urine culture showing Coag negative staph, not saprophyti Rocephin discontinued Patient started on Bactrim (2) Adult failure to thrive: Code(s): R62.7 - Adult failure to thrive Status: Acute Assessment and Plan: 12/15/23: Continue PT and OT Case management following for outpatient rehab needs 12/16/23: No change to current treatment plan 12/17/23: Continue PT and OT Case management working on placement Time Spent With Patient Time with patient: 25 - 35 minutes Subjective Date/time seen: 12/17/23 08:11 Interval history: Interval history: This is a 78-year-old female who presented to the hospital with altered mental status. Workup in the hospital included a head CT which showed stable moderate nonspecific cerebral white matter disease likely representing chronic small-vessel ischemic disease. Initial labs showed a normal white blood cell count of 6.6, sodium 136, chloride 97, AST 38. UA was obtained and showed cloudy appearance, 1+ urine protein, trace ketone, positive nitrate, 2+ leukocyte, 51-100 urine wbc's, 4+ urine bacteria. Urine culture was obtained and is pending. EKG stone sinus rhythm with a rate of 71, QTC 416. Patient was started on Rocephin and given 1 L of normal saline while in the ED. Subjective: Patient denies any new complaints today. Labs and cultures reviewed. Review of Systems Review of Systems: All systems reviewed & are unremarkable except as noted in HPI and below Constitutional: Constitutional: Reports as per HPI and Reports no additional constitutional complaints Eyes: Eyes: Reports as per HPI and Reports no additional eye complaints ENT: Reports system reviewed and no additional complaints, except as documented and Reports as per HPI Cardiovascular: Cardiovascular: Reports as per HPI and Reports no additional cardiovascular complaints Respiratory: Respiratory: Reports as per HPI and Reports no additional respiratory complaints Gastrointestinal: Gastrointestinal: Reports no additional gastrointestinal complaints Genitourinary: Genitourinary: Reports no additional female genitourinary complaints and Reports as per HPI Musculoskeletal: Musculoskeletal: Reports no additional musculoskeletal complaints Integumentary/Breasts: Skin/Breast: Reports system reviewed and no additional complaints, except as docu and Reports as per HPI Neurologic: Reports system reviewed and no additional complaints, except as documented, Reports as per HPI and Reports confusion Psychiatric: Psychiatric: Reports no additional psychiatric complaints, Reports as per HPI and Reports confusion Exam Narrative: General: In no acute distress, malnourished Cardiac: Normal S1 and S2. RRR, No murmur, gallops or friction rubs, peripheral pulses intact. Respiratory: Lungs clear to auscultation, no adventitious lung sounds, currently on room air Gastrointestinal: soft, non-distended, non-tender, hypoactive bowel sounds. : voiding without difficulty. Neuro: Alert and oriented x3 Objective Data Vital Signs Vital Signs: Vital Signs - 24 hr 12/16/23 10:49 12/16/23 14:00 12/16/23 20:12 Temperature 98.6 F 98.2 F Pulse Rate 75 78 Respiratory Rate 24 H 18 Blood Pressure 130/65 125/63 Pulse Oximetry 100 99 Oxygen Delivery Room Air 12/17/23 06:00 Temperature 97.3 F L Pulse Rate 68 Respiratory Rate 16 Blood Pressure 145/72 H Pulse Oximetry 97 Oxyg
[2023-12-17] MEDS: SULFAMETHOXAZOLE/TRIMETHOPRIM 800/160 MG DS TABLET 1 TAB PO ×2 (08:20→20:37)
[2023-12-17 14:10] VITALS: BP 119/46; PULSE 71; RESP 17; TEMP 36.3; O2SAT 98
[2023-12-17] MEDS: MELATONIN 3 MG TABLET PO (20:38)
[2023-12-17 21:13] VITALS: BP 141/64; PULSE 74; RESP 16; TEMP 36.8; O2SAT 98
[2023-12-17 21:53] VITALS: O2SAT 98
[2023-12-18 05:47] LABS: Basophils Absolute Auto 0.1 K/mm3 (0.0-0.1); Basophils Percent Auto 0.8 % (0.2-1.2); Eosinophils Absolute Auto 0.1 K/mm3 (0-0.3); Eosinophils Percent Auto 2.2 % (0-4.4); Hematocrit 39.2 % (37.0-47.0); Hemoglobin 12.8 g/dL (12.0-15.0); Immature Granulocyte Absolute 0.02 K/mm3 (0.00-0.031); Immature Granulocyte Percent A 0.3 % (0-0.5); Mean Corpuscular HGB Conc 32.7 g/dl (32-36); Mean Corpuscular Hemoglobin 31.7 pg (26-34); Mean Platelet Volume 10.8 fl (7.4-10.4); Monocytes Absolute Auto 0.7 K/mm3 (0.1-0.6); Monocytes Percent Auto 10.5 % (2.6-8.5); Neutrophils Absolute Auto 2.7 K/mm3 (1.3-6.7); Neutrophils Percent Auto 41.2 % (45.5-73.1); Platelet Count Result 213 k/mm3 (150-375); Red Blood Count 4.04 M/mm3 (4.2-5.4); Red Cell Distribution Width 13.8 % (11.5-14.5); White Blood Count 6.5 K/mm3 (4.5-10.0)
[2023-12-18 05:51] VITALS: BP 150/66; PULSE 67; RESP 16; TEMP 36.8; O2SAT 98
[2023-12-18 06:03] LABS: Alanine Aminotransferase 16 U/L (6-35); Albumin Level 3.9 g/dL (3.5-5.1); Alkaline Phosphatase 72 U/L (38-126); Anion Gap 8 mmol/L (4-12); Aspartate Amino Transferase 24 U/L (14-36); Bilirubin,Total 0.3 mg/dL (0.2-1.3); Blood Urea Nitrogen 21 mg/dL (7-17); Calcium 8.9 mg/dL (8.4-10.2); Carbon Dioxide 26 mmol/L (22-30); Chloride 99 mmol/L (98-107); Estimated CRCL calculation 38 ml/min; Estimated Glomerular Filt Rate > 60; Glucose 91 mg/dL (65-110); Potassium 4.3 mmol/L (3.4-5.0); Sodium 133 mmol/L (137-145)
[2023-12-18] MEDS: SULFAMETHOXAZOLE/TRIMETHOPRIM 800/160 MG DS TABLET 1 TAB PO ×2 (08:36→21:06)
[2023-12-18 09:51] VITALS: O2SAT 97
--- NOTE | 2023-12-18 13:50 | PM.IMPN ---
Progress Note: A&P Assessment and Plan (1) UTI (urinary tract infection): Code(s): N39.0 - Urinary tract infection, site not specified Status: Acute Assessment and Plan: 12/15/23: UA showing cloudy appearance, 1+ urine protein, trace urine ketone, positive nitrate, 2+ leukocyte, 51-100 urine WBC, 4+ urine bacteria Urine culture obtained and pending Continue Rocephin 12/16/23: Urine culture showing coagulase-negative Staphylococcus, not S. Saprophyticus on preliminary read Continue Rocephin 12/17/23: Urine culture showing Coag negative staph, not saprophyti Rocephin discontinued Patient started on Bactrim 12/18/23: Continue Bactrim No change to current treatment plan (2) Adult failure to thrive: Code(s): R62.7 - Adult failure to thrive Status: Acute Assessment and Plan: 12/15/23: Continue PT and OT Case management following for outpatient rehab needs 12/16/23: No change to current treatment plan 12/17/23: Continue PT and OT Case management working on placement 12/18/23: No change to current treatment plan Case management working on placement Time Spent With Patient Time with patient: 25 - 35 minutes Subjective Date/time seen: 12/18/23 13:50 Interval history: Interval history: This is a 78-year-old female who presented to the hospital with altered mental status. Workup in the hospital included a head CT which showed stable moderate nonspecific cerebral white matter disease likely representing chronic small-vessel ischemic disease. Initial labs showed a normal white blood cell count of 6.6, sodium 136, chloride 97, AST 38. UA was obtained and showed cloudy appearance, 1+ urine protein, trace ketone, positive nitrate, 2+ leukocyte, 51-100 urine wbc's, 4+ urine bacteria. Urine culture was obtained and is pending. EKG stone sinus rhythm with a rate of 71, QTC 416. Patient was started on Rocephin and given 1 L of normal saline while in the ED. Subjective: Patient denies any new complaints today. Labs and cultures reviewed. Review of Systems Review of Systems: All systems reviewed & are unremarkable except as noted in HPI and below Constitutional: Constitutional: Reports as per HPI and Reports no additional constitutional complaints Eyes: Eyes: Reports as per HPI and Reports no additional eye complaints ENT: Reports system reviewed and no additional complaints, except as documented and Reports as per HPI Cardiovascular: Cardiovascular: Reports as per HPI and Reports no additional cardiovascular complaints Respiratory: Respiratory: Reports as per HPI and Reports no additional respiratory complaints Gastrointestinal: Gastrointestinal: Reports no additional gastrointestinal complaints Genitourinary: Genitourinary: Reports no additional female genitourinary complaints and Reports as per HPI Musculoskeletal: Musculoskeletal: Reports no additional musculoskeletal complaints Integumentary/Breasts: Skin/Breast: Reports system reviewed and no additional complaints, except as docu and Reports as per HPI Neurologic: Reports system reviewed and no additional complaints, except as documented, Reports as per HPI and Reports confusion Psychiatric: Psychiatric: Reports no additional psychiatric complaints, Reports as per HPI and Reports confusion Exam Narrative: General: In no acute distress, malnourished Cardiac: Normal S1 and S2. RRR, No murmur, gallops or friction rubs, peripheral pulses intact. Respiratory: Lungs clear to auscultation, no adventitious lung sounds, currently on room air Gastrointestinal: soft, non-distended, non-tender, hypoactive bowel sounds. : voiding without difficulty. Neuro: Alert and oriented x3 Const: General: confusion Orientation/consciousness: confusion Neuro: General: confusion Objective Data Vital Signs Vital Signs: Vital Signs - 24 hr 12/17/23 14:10 12/17/23 21:13 12/17/23 21:53 Temperature 97.4 F L 98.2 F
[2023-12-18 13:51] VITALS: BP 134/55; PULSE 78; RESP 18; TEMP 36.6; O2SAT 98
[2023-12-18] MEDS: traZODone HCL 50 MG TABLET PO (21:06)
[2023-12-18] MEDS: MELATONIN 3 MG TABLET PO (21:06)
[2023-12-18 22:00] VITALS: BP 128/57; PULSE 66; RESP 20; TEMP 36.1; O2SAT 99
[2023-12-19 06:00] VITALS: BP 125/53; PULSE 63; RESP 20; TEMP 36.1; O2SAT 98
[2023-12-19 06:23] LABS: Basophils Absolute Auto 0.1 K/mm3 (0.0-0.1); Basophils Percent Auto 0.8 % (0.2-1.2); Eosinophils Absolute Auto 0.1 K/mm3 (0-0.3); Eosinophils Percent Auto 1.4 % (0-4.4); Hematocrit 38.8 % (37.0-47.0); Hemoglobin 12.8 g/dL (12.0-15.0); Immature Granulocyte Absolute 0.01 K/mm3 (0.00-0.031); Immature Granulocyte Percent A 0.2 % (0-0.5); Lymphocytes Percent Auto 40.5 % (18.3-44.2); Mean Corpuscular Hemoglobin 32.3 pg (26-34); Monocytes Absolute Auto 0.6 K/mm3 (0.1-0.6); Monocytes Percent Auto 9.5 % (2.6-8.5); Neutrophils Absolute Auto 3.1 K/mm3 (1.3-6.7); Neutrophils Percent Auto 47.6 % (45.5-73.1); Platelet Count Result 207 k/mm3 (150-375); Red Blood Count 3.96 M/mm3 (4.2-5.4); White Blood Count 6.4 K/mm3 (4.5-10.0)
[2023-12-19 06:34] LABS: Alanine Aminotransferase 16 U/L (6-35); Alkaline Phosphatase 70 U/L (38-126); Anion Gap 8 mmol/L (4-12); Aspartate Amino Transferase 25 U/L (14-36); Bilirubin,Total 0.3 mg/dL (0.2-1.3); Blood Urea Nitrogen 25 mg/dL (7-17); Carbon Dioxide 27 mmol/L (22-30); Chloride 98 mmol/L (98-107); Estimated CRCL calculation 34 ml/min; Estimated Glomerular Filt Rate > 60; Glucose 96 mg/dL (65-110); Potassium 4.5 mmol/L (3.4-5.0); Sodium 133 mmol/L (137-145)
[2023-12-19] MEDS: SULFAMETHOXAZOLE/TRIMETHOPRIM 800/160 MG DS TABLET 1 TAB PO (08:31)
--- NOTE | 2023-12-19 11:39 | PM.DS ---
DS: Admitting Diagnosis Discharge Date 12/19/23 Admitting Diagnosis Altered mental status UTI Adult failure to thrive DS: Discharge Diagnosis Discharge Diagnosis (1) UTI (urinary tract infection): Code(s): N39.0 - Urinary tract infection, site not specified Status: Acute (2) Adult failure to thrive: Code(s): R62.7 - Adult failure to thrive Status: Acute DS: Summary Hospital Course Reason for hospitalization: Altered mental status UTI Adult failure to thrive Hospital Course: This is a 78-year-old female who presented to the hospital with altered mental status. Workup in the hospital included a head CT which showed stable moderate nonspecific cerebral white matter disease likely representing chronic small-vessel ischemic disease. Initial labs showed a normal white blood cell count of 6.6, sodium 136, chloride 97, AST 38. UA was obtained and showed cloudy appearance, 1+ urine protein, trace ketone, positive nitrate, 2+ leukocyte, 51-100 urine wbc's, 4+ urine bacteria. Urine culture was obtained and is pending. EKG stone sinus rhythm with a rate of 71, QTC 416. Patient was started on Rocephin and given 1 L of normal saline while in the ED. patient was transitioned to Bactrim and is tolerating well. She is stable for discharge at this time. She will need to follow up with PCP in 1 week. Final diagnosis: Acute UTI, adult failure to thrive Status at Discharge Cognitive/behavioral status at discharge: Alert oriented x3 Functional status at discharge: independent ambulation Overall status at discharge: patient is progressing back to baseline Time Spent with Patient Time attestation: Total time spent providing and/or coordinating discharge services: Time spent: Greater than 30 minutes Exam Narrative: General: In no acute distress, malnourished Cardiac: Normal S1 and S2. RRR, No murmur, gallops or friction rubs, peripheral pulses intact. Respiratory: Lungs clear to auscultation, no adventitious lung sounds, currently on room air Gastrointestinal: soft, non-distended, non-tender, hypoactive bowel sounds. : voiding without difficulty. Neuro: Alert and oriented x3 Const: General: confusion Orientation/consciousness: confusion Neuro: General: confusion DS: Data Data Completed and Pending Completed studies during hospitalization: Head CT Pending studies at discharge: None Labs on day of discharge: Labs from last 24 hours 12/19/23 05:50 WBC 6.4 RBC 3.96 L Hgb 12.8 Hct 38.8 MCV 98.0 MCH 32.3 MCHC 33.0 RDW 14.0 Plt Count 207 MPV 11.0 H Immature Gran % (Auto) 0.2 Neut % (Auto) 47.6 Lymph % (Auto) 40.5 [place] % (Auto) 9.5 H Eos % (Auto) 1.4 Baso % (Auto) 0.8 Lymph # (Auto) 2.60 [place] # (Auto) 0.6 Eos # (Auto) 0.1 Baso # (Auto) 0.1 Abs Immat Gran (auto) 0.01 Absolute Neuts (auto) 3.1 Absolute Nucleated RBC 0.000 Nucleated RBC % 0.0 Sodium 133 L Potassium 4.5 Chloride 98 Carbon Dioxide 27 Anion Gap 8 BUN 25 H Creatinine 0.80 Estim Creat Clear Calc 34 Estimated GFR > 60 Glucose 96 Calcium 9.0 Total Bilirubin 0.3 AST 25 ALT 16 Alkaline Phosphatase 70 Total Protein 7.0 Albumin 4.0 Procedures/Treatments: None Discharge Plan Discharge Attending physician on discharge: John Fisher Consulting providers: Prudence Mariscal Discharging Clinician: Prudence Mariscal Anticipated Discharge Date/Time: 12/19/23 10:17 Patient Disposition: NH Skilled Nursing/Asst Living Activity: as tolerated Diet: as tolerated Discharge Instructions: Finish antibiotic as directed even if you are feeling better Follow up with primary care doctor in 1 week Patient Instructions: Sulfamethoxazole/Trimethoprim (By mouth), Urinary Tract Infection in Older Adults (DC) Patient Language: Urdu Stand Alone Forms: General Discharge Information Follow-up/Referrals: UNKNOWN,DOCTOR [Primary Care Provider] - 1 Week Discharge Medi
[2023-12-19 13:59] VITALS: BP 141/62; PULSE 78; RESP 20; TEMP 36.7; O2SAT 99
== END 2023-12-19 14:20 | DRG 690 ==
LOC: ANHED 20:38 → ANH3MED 12-15 07:29
PROVIDERS: Student in an Organized Health Care Education/Training Program; Admitting Provider Internal Medicine; Emergency Provider Emergency Medicine; Visit Provider Nurse Practitioner Acute Care
DX: N39.0 Urinary tract infection, site not specified (principal); Z68.1 Body mass index [BMI] 19.9 or less, adult; G93.40 Encephalopathy, unspecified; B95.7 Other staphylococcus as the cause of diseases classified elsewhere; R62.7 Adult failure to thrive; Z87.891 Personal history of nicotine dependence
CPT/HCPCS: 36415; 70450; 80053; 80307; 81001; 85025; 85610; 85730; 87077; 87086; 87088; 87181; 93005; 96361; 96365; 97110; 97161; 97165; 97530; 99285; A9270; G0378; J0696; J7030